=== PATIENT | male | born 1985 | race Caucasian/White ===

== ENCOUNTER 2020-02-28 16:24 | Outpatient (REF) | payer SELFPAY | END 2020-02-28 16:25 | disposition home or self-care (01) | LOC: HO.LAB 16:24 | PROVIDERS: Visit Provider Internal Medicine | DX: Z20.828 Contact with and (suspected) exposure to other viral communicable diseases (principal) | CPT/HCPCS: C9803; U0003 ==

== ENCOUNTER 2020-11-07 10:30 | Emergency (ER) | payer MEDICAID, SELFPAY ==
--- NOTE | ~2020-11-07 | CT_ITS ---
EXAMINATION: CT HEAD WITHOUT CONTRAST CLINICAL INFORMATION: Trauma. COMPARISON: None TECHNIQUE: Contiguous axial imaging was performed from the skull base to vertex without intravenous administration of contrast. Coronal and sagittal reformatted images were obtained. This CT examination was performed using dose optimization techniques as appropriate, variously including the following: *Automated exposure control *Adjustment of mA and/or kV according to patient size (this includes techniques or standardized protocols for targeted exams where dose is matched to indication/reason for exam; i.e. extremities or head) *Use of iterative reconstruction technique DLP: 1154 mGy-cm FINDINGS: There is no evidence of acute intracranial hemorrhage or territorial infarction. No abnormal mass effect or midline shift is seen. Viramontes to white matter differentiation is well preserved. No extra-axial fluid collections are identified. The ventricles are normal in size. There is no abnormal attenuation within the brain parenchyma. The osseous structures and soft tissues are normal. The mastoid air cells and visualized portions of the paranasal sinuses are well aerated. Mild soft tissue deformity seen along the left posterior parietal scalp. CT/CT head/brain wo con IMPRESSION: 1. No acute intracranial pathology. 2. Mild soft tissue deformity along the left posterior scalp suggesting acute soft tissue injury in this region. No acute underlying abnormality. Correlate with physical exam.
--- NOTE | ~2020-11-07 | XR_ITS ---
EXAMINATION: XR HUMERUS, RIGHT CLINICAL INFORMATION: Trauma, pain COMPARISON: Chest radiographs 11/07/2020, 10/10/2016 TECHNIQUE: AP and lateral views of the right humerus. FINDINGS: Right humerus shows no fracture or dislocation or destructive process. The acromioclavicular alignment is normal. The right lung shows no pneumothorax or pleural reaction. No visible rib fracture. The posterior lateral 10th rib is not well visualized due to the overlying diaphragm, but is unremarkable on chest radiograph today. XR/XR humerus RT IMPRESSION: Normal right humerus.
--- NOTE | ~2020-11-07 | XR_ITS ---
EXAMINATION: XR CHEST CLINICAL INFORMATION: Trauma COMPARISON: Chest radiographs 10/10/2016, 11/07/2012 TECHNIQUE: Upright AP view of the chest was obtained. FINDINGS: Patient slightly rotated to right. There is no acute intrathoracic disease. No pneumothorax, pleural reaction, infiltrate, or effusion. The costophrenic sulci are clear. The heart is normal in size. The hilar and mediastinal contours are normal. There are postsurgical changes again seen with sternotomy wires and focal coiling posterior left hilar region. There is old posttraumatic deformity midthoracic distal left humeral shaft with some shrapnel medial soft tissues. There is gentle levocurvature lower thoracic spine. XR/XR chest 1V IMPRESSION: No acute intrathoracic disease.
--- NOTE | ~2020-11-07 | CT_ITS ---
EXAMINATION: CT CERVICAL SPINE WITHOUT CONTRAST CLINICAL INFORMATION: Trauma. COMPARISON: None TECHNIQUE: Multiple axial images of the cervical spine were obtained without administration of intravenous contrast. Coronal and sagittal reformatted images were obtained. This CT examination was performed using dose optimization techniques as appropriate, variously including the following: *Automated exposure control *Adjustment of mA and/or kV according to patient size (this includes techniques or standardized protocols for targeted exams where dose is matched to indication/reason for exam; i.e. extremities or head) *Use of iterative reconstruction technique DLP: 374.69 mGy-cm FINDINGS: There is normal cervical lordosis and spinal alignment. Moderate to severe degenerative changes and endplate deformity is seen at C7-T1, left greater than right. The vertebral bodies are otherwise intact. There is no acute fracture. The neural foramina are patent. The facet joints are unremarkable. The spinous and odontoid processes are intact. Mild mucosal thickening is seen at the bases of the maxillary sinuses bilaterally. The cervical soft tissues are unremarkable. There is no lymphadenopathy. The thyroid gland is unremarkable. Mild biapical scarring is noted. CT/CT cervical spine wo con IMPRESSION: 1. No acute abnormality. 2. C7-T1 moderate to severe degenerative changes with endplate remodeling could be degenerative in nature secondary to old injury. 3. Mild mucosal thickening at the bases of the maxillary sinuses bilaterally.
[2020-11-07 10:45] VITALS: BP 142/88; PULSE 88; O2SAT 96
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
[2020-11-07 10:58] VITALS: BP 106/56; PULSE 109; RESP 20; O2SAT 98; BMI 22.1
[2020-11-07] MEDS: Diphth,Pertus(ACell),Tet Adult 0.5 ML SYRINGE IM (12:01)
== END 2020-11-07 13:07 ==
PROVIDERS: Emergency Provider Emergency Medicine
DX: S01.01XA Laceration without foreign body of scalp, initial encounter (principal); S40.811A Abrasion of right upper arm, initial encounter; S00.81XA Abrasion of other part of head, initial encounter; F17.210 Nicotine dependence, cigarettes, uncomplicated; Y35.313A Legal intervention involving baton, suspect injured, initial encounter; Y93.02 Activity, running; Y92.410 Unspecified street and highway as the place of occurrence of the external cause; Y99.9 Unspecified external cause status
CPT/HCPCS: 12001; 70450; 71045; 72125; 73060; 90471; 90715; 99283; 99284